=== PATIENT | male | born 1960 | race Caucasian/White ===

== ENCOUNTER → 2017-06-28 | Day surgery (SDC) | payer BC ==
[~2017-06-28] MED LIST: Lactated Ringers 1,000 ML IV SCH; Propofol 200 MG/20 ML SDV IV ONE
--- NOTE | 2017-06-28 10:24 | OR ---
DATE OF OPERATION: 06/28/2017 PREOPERATIVE DIAGNOSIS: 1. FAMILY HISTORY OF COLON CANCER. 2. CONSTIPATION. POSTOPERATIVE DIAGNOSIS: 1. FAMILY HISTORY OF COLON CANCER. 2. CONSTIPATION. SURGEON: Ruperto Gonzalez MD PROCEDURE: FULL-LENGTH COLONOSCOPY WITH POLYP REMOVAL X1. ANESTHESIA: SURGICAL SCHEDULER. COMPLICATIONS: None. SPECIMEN: Hyperplastic polyp, ascending colon. FINDINGS: 1. Full-length colonoscopy. 2. Small hyperplastic polyp, mid-ascending colon. RECOMMENDATIONS: Follow up colonoscopy every 5 years. INDICATIONS: The patient has a family history of colon CA in his mother. He has been having some altered bowel habits. He was sent by Clarence Briseno for colonoscopy. DESCRIPTION OF PROCEDURE: The patient was prepped and draped, and placed in the left lateral decubitus position. A lubricated Olympus colonoscope was inserted and easily advanced to the cecum. Direct visualization of the ileocecal valve and appendiceal orifice was accomplished. The bowel prep was adequate. Upon withdrawal of the scope, the cecal pouch was benign. In the mid-ascending colon, the patient had a small flat hyperplastic polyp, removed in its entirety with the cold forceps. The rest of the ascending and transverse colons were benign. Throughout the entire length of the left colon, I could find no signs of any polyps, mass, ulceration, bleeding sites, no vascular abnormalities or signs of colitis. There were no significant signs of diverticula. The rectal vault was unremarkable. Retroflexion of the scope in the rectum showed no anal lesions. Air was suctioned. Scope removed without complication. BARBARA/HAKEEM /[id number]
== END ==
LOC: CC.SDS 08:14
PROVIDERS: ATTEND Family Medicine
DX: K63.5 Polyp of colon (principal); Z80.0 Family history of malignant neoplasm of digestive organs; K59.00 Constipation, unspecified; F17.210 Nicotine dependence, cigarettes, uncomplicated
CPT/HCPCS: 45380; J2704; J7120

== ENCOUNTER 2020-11-07 07:49 | Emergency (ER) | payer BC ==
--- NOTE | 2020-11-07 08:58 | EDM.PDOC ---
ED HPI GENERAL MEDICAL PROBLEM - General Chief Complaint: General Stated Complaint: L Ear Pain Time Seen by Provider: 11/07/20 08:09 Source of Information: Reports: Patient History Limitations: Reports: No Limitations - History of Present Illness INITIAL COMMENTS - FREE TEXT/NARRATIVE: This patient is a 60 year old male that presents to the ER. Patient reports that since Saturday having left ear pain. Patient reports it comes and goes. He reports pressure and popping sensation in the left ear. Patient reports when he opens his mouth it pops and feels better. Denies n, v, d, f, west, dizziness. Wears hearing aids in that ear. Onset Date: 11/04/20 Severity: Mild Improves with: Reports: None Worsens with: Reports: None Associated Symptoms: Reports: No Other Symptoms Left Ear Pain Score (Numeric/FACES): 2 - Related Data Allergies Allergy/AdvReac Type Severity Reaction Status Date / Time No Known Allergies Allergy Verified 11/07/20 07:52 Home Meds: Home Meds Celecoxib 100 mg PO DAILY 11/07/20 [History] Lisinopril/Hydrochlorothiazide [Lisinopril-HCTZ 10-12.5 MG] 1 tab PO DAILY 11/07/20 [History] Past Medical History HEENT History: Reports: Hard of Hearing - Past Surgical History GI Surgical History: Reports: Hernia, Inguinal Male Surgical History: Reports: Prostatectomy Social & Family History - Tobacco Use Tobacco Use Status *Q: Former Tobacco User Used Tobacco, but Quit: Yes Month/Year Tobacco Last Used: 21 y.o - Caffeine Use Caffeine Use: Reports: Coffee - Alcohol Use Days Per Week of Alcohol Use: 2 Number of Drinks Per Day: 3 Total Drinks Per Week: 6 - Recreational Drug Use Recreational Drug Use: No ED ROS GENERAL - Review of Systems Review Of Systems: See Below Constitutional: Reports: No Symptoms HEENT: Reports: Ear Pain (left) Respiratory: Reports: No Symptoms Cardiovascular: Reports: No Symptoms Endocrine: Reports: No Symptoms GI/Abdominal: Reports: No Symptoms : Reports: No Symptoms Musculoskeletal: Reports: No Symptoms Skin: Reports: No Symptoms Neurological: Reports: No Symptoms Psychiatric: Reports: No Symptoms Hematologic/Lymphatic: Reports: No Symptoms Immunologic: Reports: No Symptoms ED EXAM, GENERAL - Physical Exam Exam: See Below Exam Limited By: No Limitations General Appearance: Alert, WD/WN, No Apparent Distress Eye Exam: Bilateral Eye: Normal Inspection, PERRL Ears: Normal External Exam, Normal Canal, Hearing Grossly Normal, Normal TMs, Other (Left Cerumen impaction. Once cleared. All normal. ) Nose: Normal Inspection, Normal Mucosa, No Blood Throat/Mouth: Normal Inspection, Normal Lips, Normal Teeth, Normal Gums, Normal Oropharynx, Normal Voice, No Airway Compromise Head: Atraumatic, Normocephalic Neck: Normal Inspection, Supple, Non-Tender Respiratory/Chest: No Respiratory Distress, Normal Breath Sounds, No Accessory Muscle Use Cardiovascular: Normal Peripheral Pulses, Regular Rate, Rhythm, No Edema, No Gallop, No JVD, No Murmur, No Rub Back Exam: Normal Inspection Extremities: Normal Inspection Neurological: Alert, Oriented Psychiatric: Normal Affect, Normal Mood Skin Exam: Warm, Dry, Intact, Normal Color, No Rash Lymphatic: No Adenopathy ED GENERAL MEDICAL PROCEDURES - Additional/Other Procedure(s) Other (Free Text) Procedure(s): Used small flexible catheter to insert slowly 10ml NS into left ear canal, then used a currette to evacuate cerumen impaction. No complications. Course - Vital Signs Last Recorded V/S: Last Vital Signs Temp 97.3 F 11/07/20 07:49 Pulse 60 11/07/20 07:49 Resp 16 11/07/20 07:49 BP 138/78 11/07/20 07:49 Pulse Ox 97 11/07/20 07:49 Departure - Departure Time of Disposition: 08:51 Disposition: Home, Self-Care 01 Condition: Good Clinical Impression: Eustachian tube dysfunction Qualifiers: Laterality: left Qualified Code(s): H69.82 - Other specified disorders of Eustachian tube, left ear Cerumen impaction Qualifiers: Laterality: left Qualified Code(s): H61.22 - Impacted cerumen, left ear - Discharge Information *PRESCRIPTION DRUG MONITORING PROGRAM REVIEWED*: Not Applicable *COPY OF PRESCRIPTION DRUG MONITORING REPORT IN PATIENT HOWIE: Not Applicable Referrals: Ruperto Gonzalez MD [Primary Care Provider] - Forms: ED Department Discharge Additional Instructions: Followup with your primary care provider Followup with ENT if needed Nasacort over the counter nasal spray Neti Pot over the counter Anjali: Or other allergy medications over the counter If pain/pressure continues, please see primary care provider for a recheck of the ear Return to the ER for worsening of condition or any emergent concerns Sepsis Event Note (ED) - Evaluation Sepsis Screening Result: No Definite Risk - Focused Exam Vital Signs: Vital Signs Temp Pulse Resp BP Pulse Ox 11/07/20 07:49 97.3 F 60 16 138/78 97 - Assessment/Plan Plan: PLEASE SEE RN NOTE FOR PFSH
== END 2020-11-07 09:00 | disposition home or self-care (01) ==
LOC: CC.ED 07:49
DX: H69.82 Other specified disorders of Eustachian tube, left ear (principal); H61.22 Impacted cerumen, left ear; Z87.891 Personal history of nicotine dependence; Z79.899 Other long term (current) drug therapy
CPT/HCPCS: 69210; 99282

== ENCOUNTER 2024-01-24 09:27 | Day surgery (SDC) | payer BC ==
[2024-01-24] MEDS: Lactated Ringers 1,000 ML IV SCH (09:39)
== END 2024-01-24 11:50 | disposition home or self-care (01) ==
LOC: CC.SDS 09:27
PROVIDERS: ATTEND Family Medicine
DX: K31.89 Other diseases of stomach and duodenum (principal); K21.9 Gastro-esophageal reflux disease without esophagitis; K57.30 Diverticulosis of large intestine without perforation or abscess without bleeding; F41.9 Anxiety disorder, unspecified; I10 Essential (primary) hypertension; C61 Malignant neoplasm of prostate; Z86.010 Personal history of colon polyps
CPT/HCPCS: 00813; 87081; J7120